=== PATIENT | male | born 1950 | race Caucasian/White ===

== ENCOUNTER 2016-12-04 13:28 | Inpatient (IN) | payer BC ==
[2016-12-04 14:23] LABS: BASO % 0.6 % (0-2); EOS % 1.1 % (0-7); EOSINOPHIL ABSOLUTE COUNT 0.1 tho/cmm (0.0-0.7); HCT-HEMATOCRIT 34.7 % (36.0-53.5); HGB-HEMOGLOBIN 8.7 gm/dl (13.5-17.0); IMMATURE GRANULOCYTES ABSOLUTE 0.03 tho/cmm (0-0.03); IMMATURE GRANULOCYTES PERCENT 0.5 % (0-0.3); LYMPH % 20.8 % (20-45); LYMPH ABSOLUTE COUNT 1.3 tho/cmm (0.8-4.5); MEAN PLATELET VOLUME 9.4 cmc (9.4-12.4); MONOCYTE ABSOLUTE COUNT 0.6 tho/cmm (0.0-1.2); NEUTROPHIL ABSOLUTE COUNT 4.3 tho/cmm (1.6-8.0); NEUTROPHIL-AUTOMATED 4.3 tho/cmm (1.6-8.0); PLATELET COUNT 221 tho/cmm (150-450); RED BLOOD COUNT 4.82 mil/cmm (4.40-5.70); RED CELL DISTRIBUTION WIDTH 20.9 % (12.4-16.4); WHITE BLOOD COUNT 6.4 tho/cmm (4.0-10.0)
[2016-12-04 14:25] LABS: ABG CO2 ARTERIAL 35 mmol/L (21-27); ARTERIAL BLD GAS O2 SATURATION 79 % (95-98); ARTERIAL BLOOD GAS PCO2 56 mmHg (32-45); BICARBONATE 33 mmol/L (21-28); BLOOD GAS BASE EXCESS 7 mM/L (-/+3); PH 7.39 Units (7.35-7.45)
[2016-12-04 14:27] LABS: MCHC MEAN CORPUSCULAR HGB CONC 25.1 % (32.0-36.0)
[2016-12-04 14:29] LABS: ARTERIAL PO2 50 mmHg (70-100)
[2016-12-04 14:30] LABS: BLOOD UREA NITROGEN 19 mg/dl (6-24); CALCIUM 8.4 mg/dl (8.5-10.5); CARBON DIOXIDE-VENOUS 34 mmol/L (22-32); CHLORIDE 105 mmol/l (96-110); CREATININE 0.84 mg/dl (0.60-1.30); GLUCOSE 115 mg/dL (70-110); SODIUM 144 mmol/L (135-145); eGFR VALUE FOR BLACK >90 mL/Min
[2016-12-04 14:31] LABS: ANION GAP 10 mmol/L (0-20); MAGNESIUM 1.9 mg/dl (1.8-2.6); POTASSIUM 4.5 mmol/L (3.7-5.1)
[2016-12-04 14:54] LABS: ALB/GLOB RATIO 0.7 (0.8-2.0); BILIRUBIN,DIRECT 0.2 mg/dl (0.0-0.3); BILIRUBIN,INDIRECT 0.5 mg/dL (0.0-1.0); BILIRUBIN,TOTAL 0.7 mg/dl (0.0-1.5)
[2016-12-04] MEDS ORDERED: BAYER ASPIRIN PO (15:49)
[2016-12-04 15:55] LABS: IRON 18 ug/dl (49-181); IRON BINDING CAPACITY 503 ug/dl (250-450)
[2016-12-05 09:25] LABS: ANION GAP 11 mmol/L (0-20); BLOOD UREA NITROGEN 22 mg/dl (6-24); CALCIUM 8.6 mg/dl (8.5-10.5); CARBON DIOXIDE-VENOUS 36 mmol/L (22-32); CHLORIDE 102 mmol/l (96-110); CHOLESTEROL 87 mg/dl (120-200); CREATININE 0.91 mg/dl (0.60-1.30); GLUCOSE 99 mg/dL (70-110); HDL CHOLESTEROL 34 mg/dl (40-60); LDL CHOLESTEROL 38 mg/dl (0-99); POTASSIUM 4.6 mmol/L (3.7-5.1); SODIUM 144 mmol/L (135-145); TRIGLYCERIDES 77 mg/dl (<149); VLDL 15 mg/dl (0-30); eGFR VALUE FOR BLACK >90 mL/Min
[2016-12-06 06:11] LABS: BASO % 0.5 % (0-2); EOS % 1.8 % (0-7); EOSINOPHIL ABSOLUTE COUNT 0.1 tho/cmm (0.0-0.7); HCT-HEMATOCRIT 33.7 % (36.0-53.5); HGB-HEMOGLOBIN 8.3 gm/dl (13.5-17.0); IMMATURE GRANULOCYTES ABSOLUTE 0.05 tho/cmm (0-0.03); IMMATURE GRANULOCYTES PERCENT 0.7 % (0-0.3); LYMPH % 19.5 % (20-45); LYMPH ABSOLUTE COUNT 1.4 tho/cmm (0.8-4.5); MCV (MEAN CELL VOLUME) 72.8 fl (82.0-96.0); MEAN PLATELET VOLUME 9.2 cmc (9.4-12.4); MONO % 11.9 % (0-12); MONOCYTE ABSOLUTE COUNT 0.9 tho/cmm (0.0-1.2); NEUTROPHIL ABSOLUTE COUNT 4.8 tho/cmm (1.6-8.0); NEUTROPHIL-AUTOMATED 4.8 tho/cmm (1.6-8.0); NEUTROPHILS % 65.6 % (40-80); PLATELET COUNT 212 tho/cmm (150-450); RED BLOOD COUNT 4.63 mil/cmm (4.40-5.70); RED CELL DISTRIBUTION WIDTH 20.7 % (12.4-16.4); WHITE BLOOD COUNT 7.3 tho/cmm (4.0-10.0)
[2016-12-06 06:13] LABS: MCH (MEAN CORPUSCULAR HGB) 17.9 pg (28.0-32.0); MCHC MEAN CORPUSCULAR HGB CONC <29.0 % (32.0-36.0)
[2016-12-06 06:26] LABS: ANION GAP 8 mmol/L (0-20); BLOOD UREA NITROGEN 22 mg/dl (6-24); CALCIUM 8.3 mg/dl (8.5-10.5); CHLORIDE 97 mmol/l (96-110); CREATININE 0.87 mg/dl (0.60-1.30); GLUCOSE 99 mg/dL (70-110); POTASSIUM 4.4 mmol/L (3.7-5.1); SODIUM 142 mmol/L (135-145); eGFR VALUE FOR BLACK >90 mL/Min
[2016-12-06 06:30] LABS: CARBON DIOXIDE-VENOUS 41 mmol/L (22-32)
[2016-12-07 05:29] LABS: BASO % 0.5 % (0-2); EOSINOPHIL ABSOLUTE COUNT 0.1 tho/cmm (0.0-0.7); HCT-HEMATOCRIT 36.8 % (36.0-53.5); HGB-HEMOGLOBIN 9.2 gm/dl (13.5-17.0); IMMATURE GRANULOCYTES ABSOLUTE 0.02 tho/cmm (0-0.03); IMMATURE GRANULOCYTES PERCENT 0.3 % (0-0.3); LYMPH % 27.5 % (20-45); LYMPH ABSOLUTE COUNT 1.6 tho/cmm (0.8-4.5); MCV (MEAN CELL VOLUME) 72.9 fl (82.0-96.0); MEAN PLATELET VOLUME 9.6 cmc (9.4-12.4); MONO % 10.8 % (0-12); MONOCYTE ABSOLUTE COUNT 0.6 tho/cmm (0.0-1.2); NEUTROPHIL ABSOLUTE COUNT 3.5 tho/cmm (1.6-8.0); NEUTROPHIL-AUTOMATED 3.5 tho/cmm (1.6-8.0); NEUTROPHILS % 58.9 % (40-80); PLATELET COUNT 236 tho/cmm (150-450); RED BLOOD COUNT 5.05 mil/cmm (4.40-5.70); RED CELL DISTRIBUTION WIDTH 20.8 % (12.4-16.4); WHITE BLOOD COUNT 5.9 tho/cmm (4.0-10.0)
[2016-12-07 05:34] LABS: MCH (MEAN CORPUSCULAR HGB) 18.2 pg (28.0-32.0)
[2016-12-07 05:37] LABS: ANION GAP 11 mmol/L (0-20); BLOOD UREA NITROGEN 18 mg/dl (6-24); CALCIUM 8.9 mg/dl (8.5-10.5); CARBON DIOXIDE-VENOUS 40 mmol/L (22-32); CHLORIDE 92 mmol/l (96-110); CREATININE 0.89 mg/dl (0.60-1.30); GLUCOSE 88 mg/dL (70-110); SODIUM 139 mmol/L (135-145); eGFR VALUE FOR BLACK >90 mL/Min
[2016-12-07 05:40] LABS: POTASSIUM 3.9 mmol/L (3.7-5.1)
[2016-12-07 19:39] LABS: ARTERIAL BLD GAS O2 SATURATION 81 % (95-98); ARTERIAL PO2 56 mmHg (70-100); BLOOD GAS BASE EXCESS 11 mM/L (-/+3); PH 7.26 Units (7.35-7.45)
[2016-12-07 19:42] LABS: ABG CO2 ARTERIAL 43 mmol/L (21-27); ARTERIAL BLOOD GAS PCO2 93 mmHg (32-45); BICARBONATE 40 mmol/L (21-28)
[2016-12-07 21:49] LABS: BICARBONATE 39 mmol/L (21-28); BLOOD GAS BASE EXCESS 10 mM/L (-/+3); PH 7.24 Units (7.35-7.45)
[2016-12-07 21:50] LABS: ARTERIAL BLD GAS O2 SATURATION 98 % (95-98); ARTERIAL PO2 114 mmHg (70-100)
[2016-12-07 21:52] LABS: ARTERIAL BLOOD GAS PCO2 93 mmHg (32-45)
[2016-12-07 21:53] LABS: ABG CO2 ARTERIAL 42 mmol/L (21-27)
[2016-12-07 23:17] LABS: ARTERIAL BLD GAS O2 SATURATION 100 % (95-98); ARTERIAL BLOOD GAS PCO2 43 mmHg (32-45); ARTERIAL PO2 165 mmHg (70-100); BICARBONATE 35 mmol/L (21-28); BLOOD GAS BASE EXCESS 11 mM/L (-/+3); PH 7.52 Units (7.35-7.45)
[2016-12-07 23:18] LABS: ABG CO2 ARTERIAL 36 mmol/L (21-27)
[2016-12-08 05:13] LABS: ABG CO2 ARTERIAL 34 mmol/L (21-27); ARTERIAL BLD GAS O2 SATURATION 99 % (95-98); ARTERIAL BLOOD GAS PCO2 36 mmHg (32-45); BICARBONATE 33 mmol/L (21-28); BLOOD GAS BASE EXCESS 10 mM/L (-/+3); PH 7.57 Units (7.35-7.45)
[2016-12-08 05:15] LABS: ARTERIAL PO2 89 mmHg (70-100)
[2016-12-08 06:34] LABS: BASO % 0.3 % (0-2); EOS % 0.7 % (0-7); EOSINOPHIL ABSOLUTE COUNT 0.1 tho/cmm (0.0-0.7); HCT-HEMATOCRIT 34.2 % (36.0-53.5); HGB-HEMOGLOBIN 8.6 gm/dl (13.5-17.0); IMMATURE GRANULOCYTES ABSOLUTE 0.02 tho/cmm (0-0.03); IMMATURE GRANULOCYTES PERCENT 0.3 % (0-0.3); LYMPH % 17.7 % (20-45); LYMPH ABSOLUTE COUNT 1.3 tho/cmm (0.8-4.5); MCV (MEAN CELL VOLUME) 72.9 fl (82.0-96.0); MONO % 9.7 % (0-12); MONOCYTE ABSOLUTE COUNT 0.7 tho/cmm (0.0-1.2); NEUTROPHIL ABSOLUTE COUNT 5.2 tho/cmm (1.6-8.0); NEUTROPHIL-AUTOMATED 5.2 tho/cmm (1.6-8.0); NEUTROPHILS % 71.3 % (40-80); PLATELET COUNT 212 tho/cmm (150-450); RED BLOOD COUNT 4.69 mil/cmm (4.40-5.70); RED CELL DISTRIBUTION WIDTH 20.9 % (12.4-16.4); WHITE BLOOD COUNT 7.3 tho/cmm (4.0-10.0)
[2016-12-08 06:37] LABS: MCH (MEAN CORPUSCULAR HGB) 18.3 pg (28.0-32.0); MCHC MEAN CORPUSCULAR HGB CONC 25.1 % (32.0-36.0)
[2016-12-08 06:48] LABS: ANION GAP 15 mmol/L (0-20); BLOOD UREA NITROGEN 18 mg/dl (6-24); CALCIUM 8.6 mg/dl (8.5-10.5); CARBON DIOXIDE-VENOUS 34 mmol/L (22-32); CHLORIDE 94 mmol/l (96-110); CREATININE 0.74 mg/dl (0.60-1.30); GLUCOSE 81 mg/dL (70-110); POTASSIUM 4.1 mmol/L (3.7-5.1); SODIUM 139 mmol/L (135-145); eGFR VALUE FOR BLACK >90 mL/Min
[2016-12-08 09:17] LABS: ABG CO2 ARTERIAL 33 mmol/L (21-27); ARTERIAL BLD GAS O2 SATURATION 100 % (95-98); ARTERIAL BLOOD GAS PCO2 34 mmHg (32-45); ARTERIAL PO2 118 mmHg (70-100); BICARBONATE 32 mmol/L (21-28); BLOOD GAS BASE EXCESS 9 mM/L (-/+3); PH 7.58 Units (7.35-7.45)
--- NOTE | 2016-12-08 19:01 | NUR ---
PT TO HAVE SURGERY TOMORROW AM FOR LARGE MASSES TO COLON. PT STABLE T/O THE DAY. UP WALKING TO THE BATHROOM AND NO BLOODY STOOLS. AT 1430 PT HAD FIRST ALE BLOOD STOOL- AROUND 500CC. PT ASYMPTOMATIC- ABLE TO WALK TO THE TOILET AND BACK. DR. TELLO AND DR. MAZA NOTIFIED OF ALE BLOOD AT [address]45. [address]DERS [address] TELLO ARE FOLLOWED: RECHECK HGB TONIGHT IF PT HAS ANOTHER BLOODY STOOL AND/OR BECOMES SYMPTOMATIC WITH HPOTENSION/TACHYCARDIA. ORDERS FROM DR. MAZA ARE FOLLOWED: RECHECK HGB NOW AND AGAIN AT 2200 AND BEGIN SERIAL Q8H HGB CHECKS AFTER. CALL IF LESS THAN 7.5. PT HAD TWO MORE ALE BLOOD STOOL TOTALING OVER 1L PT STILL ASYPTOMATIC. PICC LINE PLACED AND HGB CHECK WAS 7.6. PT UP TO THE RESTROOM AGAIN AND LARGE AMOUNTS OF BLOOD LOST AGAIN- PT STARTED TO FEEL LIGHT HEADED AND HAD A SMAL CONVULSION BUT WAS STILL TALKING TO THE RN STATING "I DONT FEEL RIGHT AND HAVE NO CONTROL OVER MY MUSCLES". CHARGE NURSE CALLED AND CAME INTO ROOM AND 1700. PT HAD ANOTHER CONVULSION AND WAS GIONG IN AND OUT OF CONSIOUSNESS. PT HAD A VERY LARGE BLOODY STOOL TOTALING OVER 1L AND KEPT GOING WHILE TRYING TO TRANSFER TO BED. BP 70/36. DR. TELLO NOTIFIED AT 1708. ORDERS ARE FOLLOWS: INFUSE 2 UNITS OF PRBCS RAPIDLY. STAY AHEAD 2 UNITS. GIVE 1 500CC NS BOLUS. DRAW PT AND PTT NOW. NOTIFY GAS FLOW REGULATOR. DR. TELLO DID NOT WANT TO TAKE PT TO SURGERY TONIGHT UNLESS HE ABSOULTELY HAD TO. DR. RESENDIZ CALLED AT 1720 AND ORDERS ARE FOLLOWED: 2L NS BOLUS. TRANFUSE BLOOD PER DR. TELLO. START LEVOPHED. CALL DR. TELLO BACK AND SUGGEST THAT HE NEEDS SURGERY TONIGHT. 1745- IMS NOTIFIED AND CAME TO SEE PT. ANESTHESIA THEN CAME TO SEE PT TO TAKE TO SURGERY TONIGHT. IMS ORDERED AN ADDITIONAL 2 UNITS OF BLOOD- A TOTAL OF 4 UNITS OF BLOOD WERE RAPIDLY TRANSFUSED. ONCE PT TO BED, HE WAS ALERT AND TALKING TO STAFF. SBP LYING FLAT WERE IN THE 110'S- LEVOPHED NOT STARTED. DR. OLBERDING UP TO ROOM AROUND 1830- SAW PT QUICKLY AND PT WAS TAKEN DOWN TO SURGERY.
[2016-12-08 19:23] LABS: BASO % 0.3 % (0-2); EOS % 0.8 % (0-7); EOSINOPHIL ABSOLUTE COUNT 0.1 tho/cmm (0.0-0.7); HCT-HEMATOCRIT 29.5 % (36.0-53.5); HGB-HEMOGLOBIN 8.1 gm/dl (13.5-17.0); IMMATURE GRANULOCYTES ABSOLUTE 0.02 tho/cmm (0-0.03); IMMATURE GRANULOCYTES PERCENT 0.3 % (0-0.3); LYMPH % 14.2 % (20-45); LYMPH ABSOLUTE COUNT 1.1 tho/cmm (0.8-4.5); MCH (MEAN CORPUSCULAR HGB) 20.5 pg (28.0-32.0); MCHC MEAN CORPUSCULAR HGB CONC 27.5 % (32.0-36.0); MCV (MEAN CELL VOLUME) 74.7 fl (82.0-96.0); MEAN PLATELET VOLUME 9.2 cmc (9.4-12.4); MONO % 9.4 % (0-12); MONOCYTE ABSOLUTE COUNT 0.7 tho/cmm (0.0-1.2); NEUTROPHIL ABSOLUTE COUNT 5.9 tho/cmm (1.6-8.0); NEUTROPHIL-AUTOMATED 5.9 tho/cmm (1.6-8.0); PLATELET COUNT 184 tho/cmm (150-450); RED BLOOD COUNT 3.95 mil/cmm (4.40-5.70); RED CELL DISTRIBUTION WIDTH 21.8 % (12.4-16.4); WHITE BLOOD COUNT 7.8 tho/cmm (4.0-10.0)
--- NOTE | 2016-12-08 19:25 | NUR ---
12/08/16 @ 1620: I AM THE CHARGE NURSE ON CCU, AT ABOUT 1620 I WAS WATCHING THE MONITORS WHEN I GOT A CALL FROM THE FLOAT NURSE THAT WAS ON CCU THAT I NEEDED TO COME TO 389 QUICK. I YELLED FOR FREDI CASTELLON TO COME WATCH MONITORS AND HEADED RIGHT TO 389. THE PATIENT WAS HAVING A SEIZURE ON THE TOILET AND WENT UNRESPONSIVE. HE CAME TO WITHIN A FEW SECONDS AND WAS VERY LETHARGIC. THE PRIMARY NURSE AND I TRIED TO GET THE PATIENT BACK TO BED, BUT HE WAS TOO WEAK. WE THEN TOOK HIS VITALS AND BLOOD PRESSURE. IMMEDIATELY CALLED DR. TELLO ABOUT THE SITUATION. 4 UNITS OF UNCROSSMATCHED BLOOD WAS ORDERED, 500CC OF NS WAS ORDERED. AT THIS TIME WE SLUNG THE PATIENT BACK TO BED, STARTED THE IV FLUID BOLUS AND CONTACTED THE BLOOD BANK. DR. RESENDIZ WITH PULMONOLOGY WAS CONTACTED RIGHT AWAY. HE WAS NOT AT THE HOSPITAL, EITHER WAS DR. TELLO SO AT THIS TIME I WENT DOWN TO THE [facility] OFFICE AND REQUESTED THAT A PHYSICIAN COME SEE THE PATIENT NOW. A PHYSICIAN (SCHUYLERWFredy TO ME) CAME TO SEE THE PATIENT, SHORTLY AFTER (ABOUT [address]) [address] LAO CAME TO THE BEDSIDE. WE WERE NOW GIVING THE BLOOD THROUGH A PICC LINE AND AN ANESTHESIOLOGIST CAME TO THE BEDSIDE, ASSESSED THE PATIENT FOR PRE-OP, DR. TELLO CAME TO THE BEDSIDE AND THE PATIENT WAS TAKEN TO OR ABOUT 1830. 4 UNITS OF BLOOD GIVEN. VITALS STABLE WHEN THE PATIENT LEFT FOR THE OR. NO PRESSORS NEEDED.
[2016-12-08 19:26] LABS: INR 1.3 INR (0.9-1.1); PROTHROMBIN TIME 15.6 SECONDS (9.0-13.6)
[2016-12-08 19:43] LABS: ALB/GLOB RATIO 0.7 (0.8-2.0); ALBUMIN 2.3 g/dl (3.5-5.0); ALKALINE PHOSPHATASE 61 U/L (33-138); ALT/SGPT 14 U/L (12-78); ANION GAP 11 mmol/L (0-20); AST/SGOT 15 U/L (10-40); BILIRUBIN,TOTAL 0.9 mg/dl (0.0-1.5); BLOOD UREA NITROGEN 19 mg/dl (6-24); CALCIUM 7.9 mg/dl (8.5-10.5); CARBON DIOXIDE-VENOUS 35 mmol/L (22-32); CHLORIDE 97 mmol/l (96-110); GLUCOSE 134 mg/dL (70-110); POTASSIUM 4.2 mmol/L (3.7-5.1); SODIUM 139 mmol/L (135-145); eGFR VALUE FOR BLACK >90 mL/Min
[2016-12-08 22:08] LABS: ABG CO2 ARTERIAL 30 mmol/L (21-27); ARTERIAL BLD GAS O2 SATURATION 99 % (95-98); ARTERIAL PO2 116 mmHg (70-100); BICARBONATE 29 mmol/L (21-28); BLOOD GAS BASE EXCESS 5 mM/L (-/+3); PH 7.46 Units (7.35-7.45)
[2016-12-08 22:09] LABS: ARTERIAL BLOOD GAS PCO2 42 mmHg (32-45)
[2016-12-08 22:20] LABS: HCT-HEMATOCRIT 32.8 % (36.0-53.5); HGB-HEMOGLOBIN 9.3 gm/dl (13.5-17.0); MCV (MEAN CELL VOLUME) 74.7 fl (82.0-96.0); RED CELL DISTRIBUTION WIDTH 21.6 % (12.4-16.4)
[2016-12-09 03:58] LABS: BASO % 0.1 % (0-2); EOS % 0.2 % (0-7); HCT-HEMATOCRIT 31.4 % (36.0-53.5); HGB-HEMOGLOBIN 9.1 gm/dl (13.5-17.0); IMMATURE GRANULOCYTES ABSOLUTE 0.02 tho/cmm (0-0.03); IMMATURE GRANULOCYTES PERCENT 0.2 % (0-0.3); LYMPH % 9.4 % (20-45); LYMPH ABSOLUTE COUNT 0.9 tho/cmm (0.8-4.5); MCH (MEAN CORPUSCULAR HGB) 21.6 pg (28.0-32.0); MCV (MEAN CELL VOLUME) 74.4 fl (82.0-96.0); MEAN PLATELET VOLUME 9.5 cmc (9.4-12.4); MONO % 7.9 % (0-12); MONOCYTE ABSOLUTE COUNT 0.7 tho/cmm (0.0-1.2); NEUTROPHIL ABSOLUTE COUNT 7.4 tho/cmm (1.6-8.0); NEUTROPHIL-AUTOMATED 7.4 tho/cmm (1.6-8.0); NEUTROPHILS % 82.2 % (40-80); PLATELET COUNT 169 tho/cmm (150-450); RED BLOOD COUNT 4.22 mil/cmm (4.40-5.70); RED CELL DISTRIBUTION WIDTH 21.6 % (12.4-16.4)
[2016-12-09 04:01] LABS: INR 1.3 INR (0.9-1.1); PROTHROMBIN TIME 14.8 SECONDS (9.0-13.6)
[2016-12-09 04:14] LABS: ALB/GLOB RATIO 0.8 (0.8-2.0); ALBUMIN 2.4 g/dl (3.5-5.0); ALKALINE PHOSPHATASE 62 U/L (33-138); ANION GAP 13 mmol/L (0-20); AST/SGOT 16 U/L (10-40); BLOOD UREA NITROGEN 20 mg/dl (6-24); CALCIUM 7.9 mg/dl (8.5-10.5); CARBON DIOXIDE-VENOUS 31 mmol/L (22-32); CHLORIDE 103 mmol/l (96-110); CREATININE 0.64 mg/dl (0.60-1.30); GLUCOSE 119 mg/dL (70-110); POTASSIUM 4.2 mmol/L (3.7-5.1); SODIUM 143 mmol/L (135-145); eGFR VALUE FOR BLACK >90 mL/Min
[2016-12-09 04:16] LABS: ALT/SGPT 14 U/L (12-78)
[2016-12-09 05:42] LABS: ABG CO2 ARTERIAL 33 mmol/L (21-27); ARTERIAL BLD GAS O2 SATURATION 98 % (95-98); ARTERIAL BLOOD GAS PCO2 52 mmHg (32-45); ARTERIAL PO2 101 mmHg (70-100); BICARBONATE 31 mmol/L (21-28); BLOOD GAS BASE EXCESS 6 mM/L (-/+3)
[2016-12-09 11:04] LABS: HCT-HEMATOCRIT 31.6 % (36.0-53.5); HGB-HEMOGLOBIN 9.1 gm/dl (13.5-17.0); MCV (MEAN CELL VOLUME) 75.1 fl (82.0-96.0); RED CELL DISTRIBUTION WIDTH 22.7 % (12.4-16.4)
[2016-12-09 17:00] LABS: HCT-HEMATOCRIT 31.4 % (36.0-53.5); RED CELL DISTRIBUTION WIDTH 23.2 % (12.4-16.4)
[2016-12-09 23:28] LABS: HGB-HEMOGLOBIN 9.1 gm/dl (13.5-17.0); MCV (MEAN CELL VOLUME) 76.6 fl (82.0-96.0); RED CELL DISTRIBUTION WIDTH 23.9 % (12.4-16.4)
[2016-12-10 05:10] LABS: BASO % 0.1 % (0-2); EOS % 1.1 % (0-7); EOSINOPHIL ABSOLUTE COUNT 0.1 tho/cmm (0.0-0.7); HCT-HEMATOCRIT 31.6 % (36.0-53.5); HGB-HEMOGLOBIN 8.9 gm/dl (13.5-17.0); IMMATURE GRANULOCYTES ABSOLUTE 0.02 tho/cmm (0-0.03); IMMATURE GRANULOCYTES PERCENT 0.3 % (0-0.3); MCH (MEAN CORPUSCULAR HGB) 21.8 pg (28.0-32.0); MCV (MEAN CELL VOLUME) 77.5 fl (82.0-96.0); MEAN PLATELET VOLUME 9.3 cmc (9.4-12.4); MONO % 10.4 % (0-12); MONOCYTE ABSOLUTE COUNT 0.8 tho/cmm (0.0-1.2); NEUTROPHIL ABSOLUTE COUNT 5.4 tho/cmm (1.6-8.0); NEUTROPHIL-AUTOMATED 5.4 tho/cmm (1.6-8.0); NEUTROPHILS % 74.1 % (40-80); PLATELET COUNT 172 tho/cmm (150-450); RED BLOOD COUNT 4.08 mil/cmm (4.40-5.70); RED CELL DISTRIBUTION WIDTH 24.3 % (12.4-16.4); WHITE BLOOD COUNT 7.3 tho/cmm (4.0-10.0)
[2016-12-10 05:24] LABS: MCHC MEAN CORPUSCULAR HGB CONC 28.2 % (32.0-36.0)
[2016-12-10 05:25] LABS: ANION GAP 10 mmol/L (0-20); BLOOD UREA NITROGEN 14 mg/dl (6-24); CARBON DIOXIDE-VENOUS 33 mmol/L (22-32); CHLORIDE 101 mmol/l (96-110); CREATININE 0.57 mg/dl (0.60-1.30); GLUCOSE 158 mg/dL (70-110); POTASSIUM 3.7 mmol/L (3.7-5.1); SODIUM 140 mmol/L (135-145); eGFR VALUE FOR BLACK >90 mL/Min
[2016-12-10 17:19] LABS: HCT-HEMATOCRIT 32.7 % (36.0-53.5); HGB-HEMOGLOBIN 9.2 gm/dl (13.5-17.0); MCV (MEAN CELL VOLUME) 78.4 fl (82.0-96.0)
[2016-12-10 22:00] LABS: HCT-HEMATOCRIT 31.3 % (36.0-53.5); HGB-HEMOGLOBIN 8.9 gm/dl (13.5-17.0); MCV (MEAN CELL VOLUME) 77.9 fl (82.0-96.0)
[2016-12-11 04:37] LABS: BASO % 0.2 % (0-2); EOSINOPHIL ABSOLUTE COUNT 0.2 tho/cmm (0.0-0.7); HCT-HEMATOCRIT 34.5 % (36.0-53.5); HGB-HEMOGLOBIN 9.7 gm/dl (13.5-17.0); IMMATURE GRANULOCYTES ABSOLUTE 0.01 tho/cmm (0-0.03); IMMATURE GRANULOCYTES PERCENT 0.2 % (0-0.3); LYMPH ABSOLUTE COUNT 1.2 tho/cmm (0.8-4.5); MCH (MEAN CORPUSCULAR HGB) 22.3 pg (28.0-32.0); MCV (MEAN CELL VOLUME) 79.3 fl (82.0-96.0); MEAN PLATELET VOLUME 9.6 cmc (9.4-12.4); MONO % 15.1 % (0-12); MONOCYTE ABSOLUTE COUNT 0.8 tho/cmm (0.0-1.2); NEUTROPHILS % 58.5 % (40-80); PLATELET COUNT 180 tho/cmm (150-450); RED BLOOD COUNT 4.35 mil/cmm (4.40-5.70)
[2016-12-11 04:38] LABS: MCHC MEAN CORPUSCULAR HGB CONC <29.0 % (32.0-36.0); RED CELL DISTRIBUTION WIDTH 25.9 % (12.4-16.4)
[2016-12-11 04:46] LABS: ANION GAP 11 mmol/L (0-20); BLOOD UREA NITROGEN 12 mg/dl (6-24); CALCIUM 8.3 mg/dl (8.5-10.5); CARBON DIOXIDE-VENOUS 33 mmol/L (22-32); CHLORIDE 100 mmol/l (96-110); CREATININE 0.59 mg/dl (0.60-1.30); GLUCOSE 119 mg/dL (70-110); POTASSIUM 3.9 mmol/L (3.7-5.1); SODIUM 140 mmol/L (135-145); eGFR VALUE FOR BLACK >90 mL/Min
[2016-12-12 04:30] LABS: BASO % 0.6 % (0-2); EOS % 6.3 % (0-7); EOSINOPHIL ABSOLUTE COUNT 0.2 tho/cmm (0.0-0.7); HCT-HEMATOCRIT 32.5 % (36.0-53.5); HGB-HEMOGLOBIN 8.9 gm/dl (13.5-17.0); LYMPH % 28.4 % (20-45); LYMPH ABSOLUTE COUNT 0.9 tho/cmm (0.8-4.5); MCV (MEAN CELL VOLUME) 80.4 fl (82.0-96.0); MEAN PLATELET VOLUME 9.8 cmc (9.4-12.4); MONOCYTE ABSOLUTE COUNT 0.5 tho/cmm (0.0-1.2); NEUTROPHIL ABSOLUTE COUNT 1.6 tho/cmm (1.6-8.0); NEUTROPHIL-AUTOMATED 1.6 tho/cmm (1.6-8.0); NEUTROPHILS % 48.7 % (40-80); PLATELET COUNT 182 tho/cmm (150-450); RED BLOOD COUNT 4.04 mil/cmm (4.40-5.70); WHITE BLOOD COUNT 3.3 tho/cmm (4.0-10.0)
[2016-12-12 04:38] LABS: ALB/GLOB RATIO 0.6 (0.8-2.0); ALKALINE PHOSPHATASE 52 U/L (33-138); ALT/SGPT 13 U/L (12-78); ANION GAP 9 mmol/L (0-20); AST/SGOT 14 U/L (10-40); BILIRUBIN,TOTAL 0.4 mg/dl (0.0-1.5); BLOOD UREA NITROGEN 9 mg/dl (6-24); CALCIUM 7.9 mg/dl (8.5-10.5); CARBON DIOXIDE-VENOUS 34 mmol/L (22-32); CHLORIDE 98 mmol/l (96-110); CREATININE 0.52 mg/dl (0.60-1.30); GLUCOSE 105 mg/dL (70-110); POTASSIUM 3.6 mmol/L (3.7-5.1); SODIUM 137 mmol/L (135-145); eGFR VALUE FOR BLACK >90 mL/Min
[2016-12-12 04:46] LABS: RED CELL DISTRIBUTION WIDTH 26.8 % (12.4-16.4)
[2016-12-12 04:47] LABS: MCHC MEAN CORPUSCULAR HGB CONC <29.0 % (32.0-36.0)
[2016-12-13 03:32] LABS: BASO % 0.8 % (0-2); EOS % 2.5 % (0-7); EOSINOPHIL ABSOLUTE COUNT 0.1 tho/cmm (0.0-0.7); HCT-HEMATOCRIT 33.2 % (36.0-53.5); HGB-HEMOGLOBIN 9.5 gm/dl (13.5-17.0); LYMPH % 26.1 % (20-45); LYMPH ABSOLUTE COUNT 0.9 tho/cmm (0.8-4.5); MCH (MEAN CORPUSCULAR HGB) 22.7 pg (28.0-32.0); MCV (MEAN CELL VOLUME) 79.2 fl (82.0-96.0); MEAN PLATELET VOLUME 9.4 cmc (9.4-12.4); MONO % 19.3 % (0-12); MONOCYTE ABSOLUTE COUNT 0.7 tho/cmm (0.0-1.2); NEUTROPHIL ABSOLUTE COUNT 1.8 tho/cmm (1.6-8.0); NEUTROPHIL-AUTOMATED 1.8 tho/cmm (1.6-8.0); NEUTROPHILS % 51.3 % (40-80); PLATELET COUNT 200 tho/cmm (150-450); RED BLOOD COUNT 4.19 mil/cmm (4.40-5.70); WHITE BLOOD COUNT 3.6 tho/cmm (4.0-10.0)
[2016-12-13 03:33] LABS: MCHC MEAN CORPUSCULAR HGB CONC 28.6 % (32.0-36.0); RED CELL DISTRIBUTION WIDTH 27.6 % (12.4-16.4)
[2016-12-13 03:45] LABS: ANION GAP 10 mmol/L (0-20); BLOOD UREA NITROGEN 15 mg/dl (6-24); CALCIUM 8.1 mg/dl (8.5-10.5); CARBON DIOXIDE-VENOUS 34 mmol/L (22-32); CHLORIDE 98 mmol/l (96-110); CREATININE 0.58 mg/dl (0.60-1.30); GLUCOSE 106 mg/dL (70-110); POTASSIUM 3.6 mmol/L (3.7-5.1); SODIUM 138 mmol/L (135-145); eGFR VALUE FOR BLACK >90 mL/Min
[2016-12-13 08:16] LABS: MAGNESIUM 1.6 mg/dl (1.8-2.6); PHOSPHOROUS 4.7 mg/dl (2.5-4.9)
[2016-12-14 04:36] LABS: BASO % 0.8 % (0-2); EOS % 3.2 % (0-7); EOSINOPHIL ABSOLUTE COUNT 0.1 tho/cmm (0.0-0.7); HCT-HEMATOCRIT 32.7 % (36.0-53.5); HGB-HEMOGLOBIN 9.1 gm/dl (13.5-17.0); LYMPH % 30.9 % (20-45); LYMPH ABSOLUTE COUNT 1.2 tho/cmm (0.8-4.5); MCH (MEAN CORPUSCULAR HGB) 22.5 pg (28.0-32.0); MCV (MEAN CELL VOLUME) 80.7 fl (82.0-96.0); MEAN PLATELET VOLUME 9.6 cmc (9.4-12.4); MONO % 18.3 % (0-12); MONOCYTE ABSOLUTE COUNT 0.7 tho/cmm (0.0-1.2); NEUTROPHIL ABSOLUTE COUNT 1.7 tho/cmm (1.6-8.0); NEUTROPHIL-AUTOMATED 1.7 tho/cmm (1.6-8.0); NEUTROPHILS % 46.8 % (40-80); PLATELET COUNT 223 tho/cmm (150-450); RED BLOOD COUNT 4.05 mil/cmm (4.40-5.70); WHITE BLOOD COUNT 3.7 tho/cmm (4.0-10.0)
[2016-12-14 05:01] LABS: ANION GAP 13 mmol/L (0-20); BLOOD UREA NITROGEN 14 mg/dl (6-24); CALCIUM 8.1 mg/dl (8.5-10.5); CARBON DIOXIDE-VENOUS 32 mmol/L (22-32); CHLORIDE 102 mmol/l (96-110); CREATININE 0.57 mg/dl (0.60-1.30); GLUCOSE 81 mg/dL (70-110); POTASSIUM 3.6 mmol/L (3.7-5.1); PREALBUMIN 6.8 mg/dl (20.0-40.0); SODIUM 143 mmol/L (135-145); eGFR VALUE FOR BLACK >90 mL/Min
[2016-12-14 05:05] LABS: MCHC MEAN CORPUSCULAR HGB CONC 27.8 % (32.0-36.0); RED CELL DISTRIBUTION WIDTH 28.2 % (12.4-16.4)
[2016-12-15 04:58] LABS: ANION GAP 11 mmol/L (0-20); BLOOD UREA NITROGEN 13 mg/dl (6-24); CALCIUM 8.2 mg/dl (8.5-10.5); CARBON DIOXIDE-VENOUS 31 mmol/L (22-32); CHLORIDE 100 mmol/l (96-110); CREATININE 0.65 mg/dl (0.60-1.30); GLUCOSE 107 mg/dL (70-110); POTASSIUM 3.9 mmol/L (3.7-5.1); SODIUM 138 mmol/L (135-145); eGFR VALUE FOR BLACK >90 mL/Min
[2016-12-17] MEDS ORDERED: ASPIRIN81 M1 PO (13:22)
[2016-12-17] MEDS ORDERED: COREG6.25 M1 PO (13:23)
[2016-12-17] MEDS ORDERED: NORCO 5-325 TA1 EACH PO (13:23)
[2016-12-17] MEDS ORDERED: PROTONIX40 M2 PO (13:24)
[2016-12-17] MEDS ORDERED: AMOXICILLIN500 M1 PO (13:25)
[2016-12-17] MEDS ORDERED: CLARITHROMYCIN500 M2 PO (13:25)
[2016-12-17] MEDS ORDERED: PRILOSEC OTC20 M1 PO (13:33)
[2016-12-17 16:17] LABS: BASO % 0.2 % (0-2); EOS % 2.5 % (0-7); EOSINOPHIL ABSOLUTE COUNT 0.2 tho/cmm (0.0-0.7); HGB-HEMOGLOBIN 9.8 gm/dl (13.5-17.0); IMMATURE GRANULOCYTES ABSOLUTE 0.02 tho/cmm (0-0.03); IMMATURE GRANULOCYTES PERCENT 0.3 % (0-0.3); LYMPH % 28.1 % (20-45); LYMPH ABSOLUTE COUNT 1.8 tho/cmm (0.8-4.5); MCH (MEAN CORPUSCULAR HGB) 23.1 pg (28.0-32.0); MCV (MEAN CELL VOLUME) 80.2 fl (82.0-96.0); MEAN PLATELET VOLUME 8.5 cmc (9.4-12.4); MONO % 12.9 % (0-12); MONOCYTE ABSOLUTE COUNT 0.8 tho/cmm (0.0-1.2); NEUTROPHIL ABSOLUTE COUNT 3.6 tho/cmm (1.6-8.0); NEUTROPHIL-AUTOMATED 3.6 tho/cmm (1.6-8.0); PLATELET COUNT 370 tho/cmm (150-450); RED BLOOD COUNT 4.24 mil/cmm (4.40-5.70); WHITE BLOOD COUNT 6.4 tho/cmm (4.0-10.0)
[2016-12-17 16:21] LABS: MCHC MEAN CORPUSCULAR HGB CONC 28.8 % (32.0-36.0); RED CELL DISTRIBUTION WIDTH 27.8 % (12.4-16.4)
== END 2016-12-17 16:10 | DRG 374 ==
LOC: EDMED 13:28 → EMR2 16:27 → PCUB 12-05 10:29 → CCU 12-07 23:20 → ORW 12-08 18:21 → CCU 12-08 20:25 → PCUB 12-10 12:12 → 5WE 12-16 11:35
PROVIDERS: Emergency Medicine; Family Medicine; Internal Medicine; Internal Medicine Cardiovascular Disease; Nurse Practitioner; Surgery; ADMIT Hospitalist
PROC: 0DBH8ZZ Excision of Cecum, Via Natural or Artificial Opening Endoscopic (ICD-10-PCS; principal; 2016-12-04)
PROC: 0DBH8ZX Excision of Cecum, Via Natural or Artificial Opening Endoscopic, Diagnostic (ICD-10-PCS; 2016-12-04)
PROC: 0DJ08ZZ Inspection of Upper Intestinal Tract, Via Natural or Artificial Opening Endoscopic (ICD-10-PCS; 2016-12-04)
PROC: 0DBK8ZX Excision of Ascending Colon, Via Natural or Artificial Opening Endoscopic, Diagnostic (ICD-10-PCS; 2016-12-04)
PROC: 0DBK8ZX Excision of Ascending Colon, Via Natural or Artificial Opening Endoscopic, Diagnostic (ICD-10-PCS; 2016-12-04)
DX: C18.9 Malignant neoplasm of colon, unspecified (principal); J96.01 Acute respiratory failure with hypoxia; J96.02 Acute respiratory failure with hypercapnia; E44.1 Mild protein-calorie malnutrition; Z68.43 Body mass index [BMI] 50.0-59.9, adult; D12.0 Benign neoplasm of cecum; D63.0 Anemia in neoplastic disease; K57.90 Diverticulosis of intestine, part unspecified, without perforation or abscess without bleeding; I10 Essential (primary) hypertension; I35.0 Nonrheumatic aortic (valve) stenosis; E66.01 Morbid (severe) obesity due to excess calories; D50.9 Iron deficiency anemia, unspecified; D12.2 Benign neoplasm of ascending colon; D12.3 Benign neoplasm of transverse colon; K63.5 Polyp of colon
CPT/HCPCS: A9500; C1751; C8929; C9113; G0009; J1170; J1335; J1650; J1750; J1940; J2405; J2704; J2785; J3010; J3475; J3480; J7030; J7050; P9016; Q9967